=== PATIENT | male | born 1955 | race Caucasian/White ===

== ENCOUNTER 2023-06-13 11:22 | Emergency (ER) | payer MEDICARE ==
[~2023-06-13] VITALS: Ht 177.8 cm; Wt 70.3 kg
[2023-06-13 11:25] VITALS: BP 144/84; PULSE 88; RESP 16
[2023-06-13] MEDS: OXYCODONE/ACETAMIN 5/325MG TAB PO ONE (12:08)
[2023-06-13] MEDS ORDERED: OXYC-38 PO ×2 (12:51→14:25)
== END 2023-06-13 13:20 | disposition home or self-care (01) ==
LOC: EDH 11:22
DX: S52.351A Displaced comminuted fracture of shaft of radius, right arm, initial encounter for closed fracture (principal); I10 Essential (primary) hypertension; Z88.2 Allergy status to sulfonamides; W18.39XA Other fall on same level, initial encounter; Y93.89 Activity, other specified; Y92.89 Other specified places as the place of occurrence of the external cause; Y99.8 Other external cause status
CPT/HCPCS: 29105; 29125; 73090